=== PATIENT | male | born 1970 | race Caucasian/White ===

== ENCOUNTER 2019-06-30 14:20 | Outpatient (CLI) | payer MEDICAID ==
[2019-06-30 19:12] LABS: HGB - HEMOGLOBIN 14.1 g/dL (14.0-18.0); MEAN CORPUSCULAR HEMOGLOBIN 31.4 pg (27.0-31.0); MEAN CORPUSCULAR HGB CONC 32.9 g/dL (32.0-36.0); MEAN CORPUSCULAR VOLUME 95.5 fL (80.0-94.0); MEAN PLATELET VOLUME 9.4 fL (7.4-11.4); RED BLOOD COUNT 4.49 10^6/uL (4.70-6.10); RED CELL DISTRIBUTION WIDTH 11.9 % (12.0-15.0); WHITE BLOOD COUNT 7.2 x10^3/uL (4.8-10.8)
[2019-06-30 20:03] LABS: URIC ACID 5.3 mg/dL (2.6-7.2)
[2019-06-30 20:04] LABS: CRP - C-REACTIVE PROTEIN < 1.0 mg/dL (0-1.0)
[2019-06-30 20:19] LABS: RHEUMATOID FACTOR NEGATIVE (Negative)
[2019-07-03 09:51] LABS: ANA SCREEN NEGATIVE (NEGATIVE)
== END 2019-06-30 23:59 | disposition home or self-care (01) ==
LOC: LAB.N 14:20
PROVIDERS: ATTEND Family Medicine
DX: M19.90 Unspecified osteoarthritis, unspecified site (principal)
CPT/HCPCS: 36415; 84550; 85027; 85651; 86038; 86140; 86200; 86430

== ENCOUNTER 2019-10-28 12:33 | Outpatient (CLI) | payer MEDICAID ==
[2019-10-28 19:34] LABS: HB2 TOTAL 14.3 g/dL; HEMOGLOBIN A1C 1.11 g/dL; HEMOGLOBIN A1C % 9.3 % (4.6-6.2)
== END 2019-10-28 23:59 | disposition home or self-care (01) ==
LOC: LAB.N 12:33
PROVIDERS: ATTEND Family Medicine
DX: E11.9 Type 2 diabetes mellitus without complications (principal)
CPT/HCPCS: 36415; 83036

== ENCOUNTER 2020-03-22 12:52 | Outpatient (CLI) | payer MEDICAID ==
[2020-03-22 19:14] LABS: HB2 TOTAL 14.7 g/dL; HEMOGLOBIN A1C 1.01 g/dL; HEMOGLOBIN A1C % 8.4 % (4.6-6.2)
[2020-03-22 19:17] LABS: CALCIUM 9.5 mg/dL (8.5-10.3)
[2020-03-22 19:32] LABS: CREATININE,URINE 63.3 mg/dL; MICROALBUM/CREATININE RATIO,UR 66.4 ug/mg (<30.0); MICROALBUMIN,URINE 4.2 mg/dL (0-300.0)
== END 2020-03-22 23:59 | disposition home or self-care (01) ==
LOC: LAB.WCP 12:52
PROVIDERS: ATTEND Family Medicine
DX: E11.9 Type 2 diabetes mellitus without complications (principal)
CPT/HCPCS: 36415; 80048; 82043; 82570; 83036

== ENCOUNTER 2020-10-18 12:45 | Outpatient (CLI) | payer MEDICAID ==
[2020-10-18 18:07] LABS: CREATININE,URINE 206.6 mg/dL; MICROALBUM/CREATININE RATIO,UR 7.7 ug/mg (<30.0); MICROALBUMIN,URINE 1.6 mg/dL (0-300.0)
[2020-10-18 18:26] LABS: BUN - BLOOD UREA NITROGEN 15 mg/dL (6-20); CALCIUM 9.6 mg/dL (8.5-10.3); CARBON DIOXIDE - CO2 27 mmol/L (21-32); CHLORIDE 100 mmol/L (101-111); CHOL/HDL RATIO 4.8 (<5.0); CHOLESTEROL 190 mg/dL; CREATININE 0.8 mg/dL (0.6-1.2); GLUCOSE 141 mg/dL (70-100); HDL CHOLESTEROL 40 mg/dL; LDL CHOLESTEROL,CALCULATED 106 mg/dL; LDL/HDL RATIO 2.7 (<3.6); VLDL CHOLESTEROL 44 mg/dL
[2020-10-18 21:00] LABS: HEMOGLOBIN A1c% 7.7 % (4.27-6.07)
== END 2020-10-18 23:59 | disposition home or self-care (01) ==
LOC: LAB.WCP 12:45
PROVIDERS: ATTEND Family Medicine
DX: E11.9 Type 2 diabetes mellitus without complications (principal); R80.9 Proteinuria, unspecified; I10 Essential (primary) hypertension
CPT/HCPCS: 36415; 80048; 80061; 82043; 82570; 83036; 83721

== ENCOUNTER 2020-10-19 11:35 | Outpatient (CLI) | payer MEDICAID ==
--- NOTE | 2020-10-19 12:26 | XRAY Report ---
PROCEDURE: Cervical Spine Complete INDICATIONS: NECK AND BACK PAIN TECHNIQUE: 5 view(s) of the cervical spine were acquired. COMPARISON: None. FINDINGS: Bones: Normal cervical spine vertebral body height and alignment. Mild disc height loss at C4-C5 and C5-C6 with associated endplate degenerative change and uncovertebral spurring. No significant neural foraminal narrowing. No significant degenerative changes of the facets. No suspicious lytic or blasti c osseous lesion. No fracture. Soft tissues: No prevertebral soft tissue swelling. IMPRESSION: Mild degenerative changes at C4-C5 and C5-C6. Reviewed by: Mynor Presley MD on 10/19/2020 12:24 PM PST Approved by: Mynor Presley MD on 10/19/2020 12:24 PM PST Station ID: [id number]
--- NOTE | 2020-10-19 12:27 | XRAY Report ---
PROCEDURE: Cervical Spine w/Flex/Ext INDICATIONS: NECK AND BACK PAIN TECHNIQUE: 2 views of the cervical spine were acquired (lateral flexion and extension views). COMPARISON: None. FINDINGS: Bones: No listhesis or significant change in alignment upon comparison of the flexion and extension v iews. Range of motion appears slightly limited upon flexion. soft tissues: Prevertebral soft tissues are normal in thickness. IMPRESSION: Slightly limited range of motion upon flexion. No findings of dynamic instability. Reviewed by: Mynor Presley MD on 10/19/2020 12:25 PM PST Approved by: Mynor Presley MD on 10/19/2020 12:25 PM PST Station ID: [id number]
== END 2020-10-19 11:36 | disposition home or self-care (01) ==
LOC: DI.N 11:35
PROVIDERS: ATTEND Family Medicine
DX: M50.321 Other cervical disc degeneration at C4-C5 level (principal)

== ENCOUNTER 2020-10-21 11:36 | Emergency (ER) | payer MEDICAID ==
--- NOTE | 2020-10-21 12:25 | ED Physician Documentation ---
History of Present Illness - Stated complaint Stated Complaint: HIGH BLOOD PRESSURE - Chief complaint Chief Complaint: General - History obtained from History obtained from: Patient - History of Present Illness Timing: How many weeks ago (1) - Additonal information Additional information: 50 y/o male with a history of CAD, HTN and DM2 is under stress after the passing of his 3 months ago. He has noted a headache and increased blood pressure and he has gone in to his doctors office for evaluation. He is taking his medications, he denies alcohol use or withdrawal, he has diabetes and he indicates he has only getting up 2 times per night, he is not sleeping well for several months. Review of Systems Constitutional: denies: Fever, Chills, Myalgias Eyes: denies: Decreased vision Ears: denies: Ear pain, Drainage/discharge Nose: denies: Rhinorrhea / runny nose, Congestion Throat: reports: Dental pain / toothache. denies: Sore throat Cardiac: denies: Chest pain / pressure, Palpitations Respiratory: denies: Dyspnea, Cough GI: denies: Abdominal Pain, Nausea, Vomiting, Constipation, Diarrhea : denies: Dysuria, Frequency Skin: denies: Rash, Lesions Musculoskeletal: reports: Neck pain. denies: Back pain, Extremity pain Neurologic: reports: Headache. denies: Generalized weakness, Focal weakness, Numbness, Difficulty speaking, Head injury, LOC Psychiatric: reports: Insomnia PD PAST MEDICAL HISTORY - Past Medical History Past Medical History: Yes Cardiovascular: Hypertension, High cholesterol, Coronary artery disease Respiratory: None Neuro: None Endocrine/Autoimmune: Type 2 diabetes GI: GERD : None HEENT: None Psych: Anxiety Musculoskeletal: None Derm: None - Past Surgical History Past Surgical History: No - Present Medications Home Medications: Ambulatory Orders Medication Instructions Recorded Confirmed Aspirin [Aspirin EC] 1 tab PO DAILY 10/21/20 10/21/20 Atorvastatin Calcium 1 tab PO DAILY 10/21/20 10/21/20 Carvedilol [Coreg] 1 tab PO BID 10/21/20 10/21/20 Cyclobenzaprine HCl 1 tab PO TID PRN 10/21/20 10/21/[address] [Voltaren] 1 tab PO BID 10/21/20 10/21/20 Insulin Glargine [Lantus Solostar] 40 units SQ HS 10/21/20 10/21/20 Lisinopril [Zestril] 1 tab PO DAILY 10/21/20 10/21/20 Ticagrelor [Brilinta] 90 mg PO BID 10/21/20 10/21/20 glipiZIDE [Glipizide] 1 tab PO BID 10/21/20 10/21/20 metFORMIN [Glucophage] 2 tab PO BID 10/21/20 10/21/20 - Allergies Allergies/Adverse Reactions: Allergies Allergy/AdvReac Type Severity Reaction Status Date / Time Penicillins Allergy Rash Verified 10/21/20 11:46 - Social History Does the pt smoke?: Yes Smoking Status: Current every day smoker Does the pt drink ETOH?: No Does the pt have substance abuse?: No - Immunizations Immunizations are current?: Yes - POLST Patient has POLST: No PD ED PE NORMAL - Vitals Vital signs reviewed: Yes (hypertensive marked) - General General: Alert and oriented X 3, No acute distress, Well developed/nourished - HEENT HEENT: Atraumatic, PERRL, EOMI, Other (multiple teeth are carious and broken off at the gum) - Neck Neck: Supple, no meningeal sign, No bony TTP - Cardiac Cardiac: RRR, No murmur - Respiratory Respiratory: No respiratory distress, Clear bilaterally - Abdomen Abdomen: Soft, Non tender - Back Back: No CVA TTP, No spinal TTP - Derm Derm: Normal color, Warm and dry, No rash - Extremities Extremities: No deformity, No edema - Neuro Neuro: Alert and oriented X 3, text transcriber 2-12 intact, No motor deficit, No sensory deficit, Normal speech Eye Opening: Spontaneous Motor: Obeys Commands Verbal: Oriented GCS Score: 15 - Psych Psych: Normal mood, Normal affect Results - Vitals Vitals: Vital Signs - 24 hr 10/21/20 10/21/20 11:40 13:05 Temperature 36.3 C L Heart Rate 87 84 Respiratory 18 18 Rate Blood Pressure 192/114 H 164/91 H O2 Saturation 99 100 Oxygen O2 Source Room air - Labs Labs: Laboratory Tests 10/21/20 10/21/20 10/21/20 12:22 12:22 12:22 WBC 7.8 RBC 4.67 L Hgb 14.7 Hct 44.0 MCV 94.2 H MCH 31.5 H MCHC 33.4 RDW 12.0 Plt Count 305 MPV 8.4 Neut # (Auto) 4.9 Lymph # (Auto) 1.8 Kaufman # (Auto) 0.6 Eos # (Auto) 0.3 Baso # (Auto) 0.1 Absolute Nucleated RBC 0.00 Nucleated RBC % 0.0 Sodium 140 Potassium 4.7 Chloride 99 L Carbon Dioxide 26 Anion Gap 15.0 H BUN 17 Creatinine 0.8 Estimated GFR (MDRD) 103 Glucose 183 H Calcium 9.3 Total Bilirubin 0.7 AST 13 ALT 24 Alkaline Phosphatase 60 Troponin I High Sens Total Protein 7.2 Albumin 4.3 Globulin 2.9 Albumin/Globulin Ratio 1.5 Lipase 30 TSH 0.93 10/21/20 12:22 WBC RBC Hgb Hct MCV MCH MCHC RDW Plt Count MPV Neut # (Auto) Lymph # (Auto) Kaufman # (Auto) Eos # (Auto) Baso # (Auto) Absolute Nucleated RBC Nucleated RBC % Sodium Potassium Chloride Carbon Dioxide Anion Gap BUN Creatinine Estimated GFR (MDRD) Glucose Calcium Total Bilirubin AST ALT Alkaline Phosphatase Troponin I High Sens 4.8 Total Protein Albumin Globulin Albumin/Globulin Ratio Lipase TSH Procedures - IVC sono (time) 1150 Bedside IVC sono: IVC measures (cm) (1.15), IVC collapsed c insp (cm) (complete), Dehydration (est 1+ liter deficit) PD MEDICAL DECISION MAKING - ED course Complexity details: reviewed old records, reviewed results, re-evaluated patient, considered differential, d/w patient ED course: 50 y/o male diabetic with htn and CAD is hypertensive and dehydrated. He was able to drink a liter of fluid and his pressure came down to a reasonable range. He has some dental problems and has some pain associated with this and this may be contributing as well. He is taking lisinopril 40mg daily and carvedilol 25mg bid. These are both reasonably strong doses and I considered adding a third agent until we rechecked the pressure. I have asked the patient to follow up with the dentist and stay hydrated. Departure - Departure Disposition: 01 Home, Self Care Clinical Impression: Dehydration determined by examination Hypertension Qualifiers: Hypertension type: essential hypertension Qualified Code(s): I10 - Essential (primary) hypertension Condition: Stable Instructions: ED Dehydration, ED Hypertension Conf Out Of Control Follow-Up: Fili Piña MD [Primary Care Provider] - Comments: Today your blood pressure was markedly elevated and this has improved during your visit. We found you were dehydrated on arrival and after the liter of fluid you consumed your blood pressure is better. Dehydration can happen from diabetes whenever your sugar goes above 210. Control your diabetes as closely as you can. Painful conditions acute or chronic can increase your blood pressure as well. We recommend you get in to see a dentist about your teeth as this is also likely contributing. Take your medications, stay hydrated, follow up with the dentist and follow up with your primary care doctor.
[2020-10-21 12:33] LABS: BASOPHILS # (AUTO) 0.1 10^3/uL (0.0-0.1); BASOPHILS % (AUTO) 0.9 %; EOSINOPHILS # (AUTO) 0.3 10^3/uL (0.0-0.7); EOSINOPHILS % (AUTO) 3.9 %; HGB - HEMOGLOBIN 14.7 g/dL (14.0-18.0); LYMPHOCYTES # (AUTO) 1.8 10^3/uL (1.5-3.5); LYMPHOCYTES % (AUTO) 23.1 %; MEAN CORPUSCULAR HEMOGLOBIN 31.5 pg (27.0-31.0); MEAN CORPUSCULAR HGB CONC 33.4 g/dL (32.0-36.0); MEAN CORPUSCULAR VOLUME 94.2 fL (80.0-94.0); MEAN PLATELET VOLUME 8.4 fL (7.4-11.4); MONOCYTES # (AUTO) 0.6 10^3/uL (0.0-1.0); MONOCYTES % (AUTO) 8.1 %; NEUTROPHILS # (AUTO) 4.9 10^3/uL (1.5-6.6); NEUTROPHILS % (AUTO) 63.6 %; PLT - PLATELET COUNT 305 10^3/uL (130-450); RED BLOOD COUNT 4.67 10^6/uL (4.70-6.10); WHITE BLOOD COUNT 7.8 x10^3/uL (4.8-10.8)
[2020-10-21 12:51] LABS: ALBUMIN 4.3 g/dL (3.2-5.5); ALBUMIN/GLOBULIN RATIO 1.5 (1.0-2.2); BILIRUBIN,TOTAL 0.7 mg/dL (0.2-1.0); CALCIUM 9.3 mg/dL (8.5-10.3); CREATININE 0.8 mg/dL (0.6-1.2); TOTAL PROTEIN 7.2 g/dL (6.7-8.2)
[2020-10-21 13:06] VITALS: BP 164/91
== END 2020-10-21 13:23 | disposition home or self-care (01) ==
LOC: ED 11:36
DX: E86.0 Dehydration (principal); I10 Essential (primary) hypertension; K02.9 Dental caries, unspecified; K08.89 Other specified disorders of teeth and supporting structures; E11.9 Type 2 diabetes mellitus without complications; Z79.4 Long term (current) use of insulin; I25.10 Atherosclerotic heart disease of native coronary artery without angina pectoris; Z79.82 Long term (current) use of aspirin; F17.200 Nicotine dependence, unspecified, uncomplicated; Z20.822 Contact with and (suspected) exposure to COVID-19
CPT/HCPCS: 36415; 80053; 83690; 84443; 84484; 85025; 99283; 99284

== ENCOUNTER 2021-01-11 12:20 | Outpatient (CLI) | payer MEDICAID ==
[2021-01-11 18:52] LABS: BASOPHILS # (AUTO) 0.1 10^3/uL (0.0-0.1); BASOPHILS % (AUTO) 0.9 %; EOSINOPHILS # (AUTO) 0.5 10^3/uL (0.0-0.7); EOSINOPHILS % (AUTO) 6.4 %; HGB - HEMOGLOBIN 12.5 g/dL (14.0-18.0); LYMPHOCYTES # (AUTO) 2.3 10^3/uL (1.5-3.5); LYMPHOCYTES % (AUTO) 31.1 %; MEAN CORPUSCULAR HEMOGLOBIN 31.7 pg (27.0-31.0); MEAN CORPUSCULAR HGB CONC 32.9 g/dL (32.0-36.0); MEAN CORPUSCULAR VOLUME 96.4 fL (80.0-94.0); MEAN PLATELET VOLUME 9.2 fL (7.4-11.4); MONOCYTES # (AUTO) 0.6 10^3/uL (0.0-1.0); NEUTROPHILS % (AUTO) 53.2 %; PLT - PLATELET COUNT 322 10^3/uL (130-450); RED BLOOD COUNT 3.94 10^6/uL (4.70-6.10); RED CELL DISTRIBUTION WIDTH 11.9 % (12.0-15.0); WHITE BLOOD COUNT 7.5 x10^3/uL (4.8-10.8)
[2021-01-11 19:02] LABS: ESTIMATED AVERAGE GLUCOSE 186 mg/dL (70-100); HEMOGLOBIN A1c% 8.1 % (4.27-6.07)
[2021-01-11 21:16] LABS: CALCIUM 8.9 mg/dL (8.5-10.3); CREATININE 0.9 mg/dL (0.6-1.2); POTASSIUM 4.8 mmol/L (3.5-5.0)
== END 2021-01-11 23:59 | disposition home or self-care (01) ==
LOC: LAB.WCP 12:20
PROVIDERS: ATTEND Family Medicine
DX: E11.9 Type 2 diabetes mellitus without complications (principal); I10 Essential (primary) hypertension
CPT/HCPCS: 36415; 80048; 83036; 85025

== ENCOUNTER 2021-03-31 07:47 | Emergency (ER) | payer MEDICAID ==
[2021-03-31] MEDS ORDERED: CHERRY SYRUP 10 ML UDC PO ONE (09:22)
[2021-03-31] MEDS ORDERED: DEXAMETHASONE 10 MG/ML VIAL PO STA (09:22)
--- NOTE | 2021-03-31 09:25 | ED Physician Documentation ---
History of Present Illness - Stated complaint Stated Complaint: COUGH - Chief complaint Chief Complaint: Resp - History obtained from History obtained from: Patient - Additonal information Additional information: 50-year-old man with history of diabetes, high blood pressure, AL with stents, presents with productive cough since Friday associated with nasal congestion. Patient also states that he is wheezing in the evening times and has a history of childhood asthma. Does not have an albuterol inhaler at home. Denies fever, ear pain, chest pain, shortness of breath, rash, sick contacts or travel. Review of Systems Constitutional: reports: Fatigue. denies: Fever, Chills Nose: reports: Rhinorrhea / runny nose, Congestion Cardiac: denies: Chest pain / pressure Respiratory: reports: Cough. denies: Hemoptysis GI: denies: Abdominal Pain, Nausea, Vomiting PD PAST MEDICAL HISTORY - Past Medical History Past Medical History: Yes Cardiovascular: Hypertension, High cholesterol, Coronary artery disease Respiratory: None Neuro: None Endocrine/Autoimmune: Type 2 diabetes GI: GERD : None HEENT: None Psych: Anxiety Musculoskeletal: None Derm: None - Past Surgical History Past Surgical History: No - Present Medications Home Medications: Ambulatory Orders Medication Instructions Recorded Confirmed Aspirin [Aspirin EC] 1 tab PO DAILY 10/21/20 03/31/21 Atorvastatin Calcium 1 tab PO DAILY 10/21/20 03/31/21 Carvedilol [Coreg] 1 tab PO BID 10/21/20 03/31/21 Cyclobenzaprine HCl 1 tab PO TID PRN 10/21/20 03/31/[address] [Voltaren] 1 tab PO BID 10/21/20 03/31/21 Insulin Glargine [Lantus Solostar] 40 units SQ HS 10/21/20 03/31/21 Lisinopril [Zestril] 1 tab PO DAILY 10/21/20 03/31/21 Ticagrelor [Brilinta] 90 mg PO BID 10/21/20 03/31/21 glipiZIDE [Glipizide] 1 tab PO BID 10/21/20 03/31/21 metFORMIN [Glucophage] 2 tab PO BID 10/21/20 03/31/21 hydroCHLOROthiazide [Hydrodiuril] 12.5 mg PO DAILY 03/31/21 03/31/21 - Allergies Allergies/Adverse Reactions: Allergies Allergy/AdvReac Type Severity Reaction Status Date / Time Penicillins Allergy Rash Verified 03/31/21 08:05 strawberry Allergy Hives Verified 03/31/21 08:05 - Social History Does the pt smoke?: Yes Smoking Status: Current every day smoker Does the pt drink ETOH?: No Does the pt have substance abuse?: No - Immunizations Immunizations are current?: Yes - POLST Patient has POLST: No PD ED PE NORMAL - Vitals Vital signs reviewed: Yes - General General: Alert and oriented X 3, No acute distress, Well developed/nourished - HEENT HEENT: Atraumatic, PERRL, EOMI, Moist mucous membranes, Pharynx benign, Other (Bilateral nasal congestion) - Neck Neck: Supple, no meningeal sign - Cardiac Cardiac: RRR - Respiratory Respiratory: No respiratory distress, Clear bilaterally - Abdomen Abdomen: Non tender, Non distended - Derm Derm: Normal color, Warm and dry - Extremities Extremities: No deformity - Neuro Neuro: Alert and oriented X 3 - Psych Psych: Normal mood, Normal affect Results - Vitals Vitals: Vital Signs - 24 hr 03/31/21 08:02 Temperature 36.4 C L Heart Rate 78 Respiratory 20 Rate Blood Pressure 150/94 H O2 Saturation 100 Oxygen O2 Source Room air PD MEDICAL DECISION MAKING - ED course ED course: 50-year-old man presents with viral upper respiratory infection. Education given and return precautions given. He will follow up with his primary doctor. Departure - Departure Disposition: 01 Home, Self Care Clinical Impression: URI (upper respiratory infection) Condition: Good Instructions: ED Viral Syndrome Comments: You were seen in the emergency department for a cold. Return to the emergency department you have any new or worsening symptoms or other concerns. Follow-up your primary doctor Forms: Activity restrictions
[2021-03-31 09:35] VITALS: BP 130/83
== END 2021-03-31 09:41 | disposition home or self-care (01) ==
LOC: ED 07:47
DX: J06.9 Acute upper respiratory infection, unspecified (principal); E11.9 Type 2 diabetes mellitus without complications; Z79.4 Long term (current) use of insulin; I10 Essential (primary) hypertension; F17.200 Nicotine dependence, unspecified, uncomplicated
CPT/HCPCS: 99282; 99284; A9270

== ENCOUNTER 2021-05-17 10:53 | Outpatient (CLI) | payer MEDICAID ==
[2021-05-17 18:07] LABS: BASOPHILS # (AUTO) 0.1 10^3/uL (0.0-0.1); BASOPHILS % (AUTO) 1.1 %; EOSINOPHILS # (AUTO) 0.3 10^3/uL (0.0-0.7); HCT - HEMATOCRIT 39.1 % (42.0-52.0); HGB - HEMOGLOBIN 12.5 g/dL (14.0-18.0); LYMPHOCYTES # (AUTO) 1.9 10^3/uL (1.5-3.5); LYMPHOCYTES % (AUTO) 34.8 %; MEAN CORPUSCULAR HEMOGLOBIN 31.4 pg (27.0-31.0); MEAN CORPUSCULAR VOLUME 98.2 fL (80.0-94.0); MEAN PLATELET VOLUME 9.3 fL (7.4-11.4); MONOCYTES # (AUTO) 0.5 10^3/uL (0.0-1.0); MONOCYTES % (AUTO) 9.7 %; NEUTROPHILS # (AUTO) 2.7 10^3/uL (1.5-6.6); PLT - PLATELET COUNT 302 10^3/uL (130-450); RED BLOOD COUNT 3.98 10^6/uL (4.70-6.10); RED CELL DISTRIBUTION WIDTH 12.2 % (12.0-15.0); WHITE BLOOD COUNT 5.6 x10^3/uL (4.8-10.8)
[2021-05-17 18:18] LABS: CALCIUM 9.1 mg/dL (8.5-10.3); CREATININE 1.1 mg/dL (0.6-1.2); POTASSIUM 4.3 mmol/L (3.5-5.0)
[2021-05-17 18:26] LABS: CREATININE,URINE 89.9 mg/dL; MICROALBUM/CREATININE RATIO,UR 3.3 ug/mg (<30.0); MICROALBUMIN,URINE 0.3 mg/dL (0-300.0)
[2021-05-17 19:59] LABS: ESTIMATED AVERAGE GLUCOSE 209 mg/dL (70-100); HEMOGLOBIN A1c% 8.9 % (4.27-6.07)
== END 2021-05-17 10:54 | disposition home or self-care (01) ==
LOC: LAB.N 10:53
PROVIDERS: ATTEND Family Medicine
DX: E11.319 Type 2 diabetes mellitus with unspecified diabetic retinopathy without macular edema (principal); E66.9 Obesity, unspecified; L40.8 Other psoriasis; I10 Essential (primary) hypertension
CPT/HCPCS: 36415; 80048; 82043; 82570; 83036; 85025

== ENCOUNTER 2021-09-26 13:42 | Outpatient (CLI) | payer MEDICAID ==
[2021-09-26 14:39] VITALS: BP 127/80
--- NOTE | 2021-09-26 14:39 | SLEEP CARE CONSULTATION ---
Information from patient questionnaire entered by Yemi Babcock MA. I have reviewed and concur with the information entered by Yemi Babcock MA. This document represents the service I personally performed and the decisions made by me, Niya Bridges ARNP. History of Present Illness Service Date and Time: 09/26/2021 1342 Reason for Visit: New patient Chief Complaint: reports: Unrefreshed sleep (sometimes), Snoring, Excessive daytime sleepiness (worse over last year), Frequent awakenings at night Date of Onset: 1 YEAR Usual bedtime: 11:00 PM Time it takes to fall asleep: 45 PLUS MINUTES Snores at night: Yes Observed to quit breathing while asleep: No Sleeps alone due to snoring: No Number of times waking at night: 1 - 2 Reasons for waking at night: reports: Snoring, Bathroom. denies: Choking, Gasping for air Toss, Turn, or Twitch while sleeping: Yes Recalls having dreams: Yes Usually gets out of bed at: 10:30, sometimes earlier Feels refreshed in the morning: No Morning headache: No Sleepy or fatigued during the day: No Ever fallen asleep while driving: Yes (no drowsy driving or accidents) Takes day naps: No Dreams during day naps: No Prior sleep studies: No Additional HPI information: I had the pleasure of seeing KAT SIM today regarding the possibility of him having a sleep disorder. His current complaints are excessive daytime sleepiness and frequent night awakenings. He states he has been told that he snores very loud by his late and other family members. He feels that his daytime sleepiness has gotten worse over the last year. He feels he is waking up frequently at night but states he does have diabetes and is up using the restroom. He is not rested in the mornings except for a few days where he gets less than 6 hours sleep. He will go to sleep around 11 PM and sometimes not get up until 10:30 in the morning. He states he does not have to go to work until noon around 8 AM he will try to get back to sleep. He states in 2016 he had a he art attack and they had to place 3 heart stents in his heart. He is also diabetic with neuropathy. He is a current smoker. 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 Patient is and lives in [place]. Have you smoked in the past 12 months: Yes Cigarettes per day (20/pack): 20 Alcohol use: No Caffeine use: Yes Caffeine amount and frequency: 1 X DAILY Family History Family history of sleep disordered breathing: No Allergies and Home Medications Known drug allergies: Yes ([facility]) Drug allergies reviewed: Yes Home medication list reviewed: Yes Allergy and home medication list: Acetaminophen 500 mg Aspirin 81 mg Atorvastatin 40 mg Brilinta 90 mg Carvedilol 25 mg Vitamin D3 Cyclobenzaprine 10 mg Diclofenac EC 75 mg Gabapentin 400 mg Glipizide 10 mg, twice daily HCTZ 12.5 mg Jardiance 10 mg Lantus 42 units nightly Lisinopril 40 mg Metformin 1000 mg twice a day Review of Systems Cardiovascular: reports: high blood pressure Gastrointestinal: denies: heartburn Psychiatric: denies: anxiety, depression Ear/Nose/Throat: reports: wisdom teeth removed. denies: tonsillectomy Endocrine: reports: increased urination. denies: thyroid disease Musculoskeletal: reports: back pain, muscle pain or cramping Physical Exam Vital signs obtained and entered by: Barbara BABCOCK CMA [facility] Blood Pressure: 127/80 (LEFT WRIST) Heart Rate: 97 O2 Saturation: 97 (WITH PAPER MASK) Height: 6 ft 2 in Weight: 275 lb (WITH CLOTHES) Body Mass Index: 35.3 BMI Classification: Obese Neck circumference: 19 (inches) Soft palate: long Hard palate: normal Uvula: normal Uvula visualization: 50% Mallampati Class II Tongue: enlarged in size with teeth stacy on lateral edges Tonsils: 1+ Neck: normal w/o lymphadenopathy or thyromegaly Heart: regular rate and rhythm Lungs: clear bilaterally Impression and Plan 1. Suspected Obstructive Sleep Apnea-Hypopnea Syndrome, as suggested by a history of loud and irregular snoring, frequent awakening during the night, unrefreshed sleep and excessive daytime sleepiness. Narrow oropharynx and obesit y are common predisposing factors for obstructive sleep apnea-hypopnea syndrome. I recommend proceeding to polysomnography to confirm the diagnosis and to assess severity. If the patient has significant sleep disordered breathing, a manual CPAP titration study will also be performed to find the optimal treatment pressure. I informed the patient of what the sleep studies involve and after some discussion, obtained agreement to proceed. The pathophysiology of obstructive sleep apnea-hypopnea syndrome was discussed with the patient and health risks of cardiovascular and cerebrovascular disease if not treated. AAS brochure for obstructive sleep apnea-hypopnea syndrome given and reviewed. Risks of drowsy driving discussed in detail and patient advised to avoid long distance driving and to warehouse puller at the first sign of drowsiness. Patient agreed to plan. * Schedule polysomnography +- manual CPAP titration study and return in 1-2 weeks after the study to discuss result and initiate therapy. * Avoid long distance driving or driving when feeling sleepy. * Avoid alcohol, sedative and muscle relaxant around bedtime. * Attempt to lose weight. * Review instructions provided by trained office staff on how to prepare for the sleep study. * Return for follow-up after sleep study completed. Counseling Topics: Weight loss health impact Visit Type: In Office Time Spent with Patient (minutes): 32 Provider Statement: I spent 100% of the Face to Face Visit with the patient with greater than 50% spent counseling the patient and coordination of care.
== END 2021-09-26 13:43 | disposition home or self-care (01) ==
LOC: SC 13:42
PROVIDERS: ATTEND Nurse Practitioner Family
DX: G47.10 Hypersomnia, unspecified (principal); R06.83 Snoring; G47.8 Other sleep disorders; E66.9 Obesity, unspecified; Z68.35 Body mass index [BMI] 35.0-35.9, adult
CPT/HCPCS: 99203; 99212

== ENCOUNTER 2021-10-03 14:37 | Outpatient (CLI) | payer MEDICAID | END 2021-10-03 14:38 | disposition home or self-care (01) | LOC: SC 14:37 | PROVIDERS: ATTEND Nurse Practitioner Family | DX: G47.33 Obstructive sleep apnea (adult) (pediatric) (principal); R09.02 Hypoxemia | CPT/HCPCS: 95806 ==

== ENCOUNTER 2021-10-04 08:54 | Outpatient (CLI) | payer MEDICAID ==
[2021-10-04 12:14] LABS: BASOPHILS # (AUTO) 0.1 10^3/uL (0.0-0.1); BASOPHILS % (AUTO) 0.8 %; EOSINOPHILS # (AUTO) 0.3 10^3/uL (0.0-0.7); HGB - HEMOGLOBIN 14.5 g/dL (14.0-18.0); LYMPHOCYTES % (AUTO) 32.8 %; MEAN CORPUSCULAR HEMOGLOBIN 31.7 pg (27.0-31.0); MEAN CORPUSCULAR VOLUME 96.3 fL (80.0-94.0); MEAN PLATELET VOLUME 9.2 fL (7.4-11.4); MONOCYTES # (AUTO) 0.6 10^3/uL (0.0-1.0); MONOCYTES % (AUTO) 10.3 %; NEUTROPHILS # (AUTO) 3.2 10^3/uL (1.5-6.6); NEUTROPHILS % (AUTO) 50.9 %; PLT - PLATELET COUNT 291 10^3/uL (130-450); RED BLOOD COUNT 4.57 10^6/uL (4.70-6.10); RED CELL DISTRIBUTION WIDTH 12.2 % (12.0-15.0); WHITE BLOOD COUNT 6.2 x10^3/uL (4.8-10.8)
[2021-10-04 12:20] LABS: ALBUMIN 4.2 g/dL (3.2-5.5); ALBUMIN/GLOBULIN RATIO 1.3 (1.0-2.2); ALKALINE PHOSPHATASE 67 IU/L (42-121); ALT ALANINE AMINOTRANSFERASE 20 IU/L (10-60); AST ASPARTATE AMINOTRANSFERASE 14 IU/L (10-42); BILIRUBIN,TOTAL 0.6 mg/dL (0.2-1.0); BUN - BLOOD UREA NITROGEN 27 mg/dL (6-20); CARBON DIOXIDE - CO2 27 mmol/L (21-32); CHLORIDE 101 mmol/L (101-111); CHOLESTEROL 168 mg/dL; CREATININE 1.1 mg/dL (0.6-1.2); GFR - MDRD 71 (>89); GLUCOSE 176 mg/dL (70-100); HDL CHOLESTEROL 28 mg/dL; LDL CHOLESTEROL,CALCULATED 78 mg/dL; LDL/HDL RATIO 2.8 (<3.6); SODIUM 139 mmol/L (135-145); TOTAL PROTEIN 7.5 g/dL (6.7-8.2); TRIGLYCERIDES 311 mg/dL; VLDL CHOLESTEROL 62 mg/dL
[2021-10-04 12:30] LABS: THYROID STIMULATING HORMONE 1.62 uIU/mL (0.34-5.60)
[2021-10-04 12:47] LABS: MICROALBUM/CREATININE RATIO,UR 6.7 ug/mg (<30.0)
[2021-10-04 19:05] LABS: ESTIMATED AVERAGE GLUCOSE 174 mg/dL (70-100); HEMOGLOBIN A1c% 7.7 % (4.27-6.07)
== END 2021-10-04 08:55 | disposition home or self-care (01) ==
LOC: LAB.N 08:54
PROVIDERS: ATTEND Family Medicine
DX: I10 Essential (primary) hypertension (principal); Z12.5 Encounter for screening for malignant neoplasm of prostate; E78.5 Hyperlipidemia, unspecified; E11.9 Type 2 diabetes mellitus without complications
CPT/HCPCS: 36415; 80053; 80061; 82043; 82570; 83036; 83721; 84153; 84443; 85025

== ENCOUNTER 2021-10-24 14:12 | Outpatient (CLI) | payer MEDICAID ==
--- NOTE | 2021-10-24 15:01 | SLEEP CARE CONSULTATION ---
Information from patient questionnaire entered by Yemi Benavides MA. I have reviewed and concur with the information entered by Yemi Benavides MA. This document represents the service I personally performed and the decisions made by , Niya Bridges ARNP. History of Present Illness Service Date and Time: 10/24/2021 1412 Initial [place] Sleepiness Scale score: 2 (2021) Current [place] Sleepiness Scale score: 8 (2021) Additional HPI information: KAT SIM returns for follow up and results of the recently performed home sleep study. I explained the pathophysiology behind obstructive sleep apnea. We then spent quite a bit of time discussing different treatment options. For mild obstructive sleep apnea, surgery and oral appliance are alternatives to nasal CPAP therapy but in moderate or severe cases, nasal CPAP is the most effective and reliable treatment. Because apnea is primarily in supine position, then positional management therapy could be effective. Methods discussed such as positioning with pillows to prevent supine sleep. I reviewed the impact of weight changes on sleep apnea and strongly recommended losing weight. After some discussion, the patient opted to go with the nasal CPAP therapy. Nasal autoCPAP set at 4-15 cmH20 will be ordered with rationale explained. A manual titration study will be ordered if unable to find optimal pressure with office adjustments. I explained how CPAP machine works and what to expect when using the machine. Using CPAP every night in order to get used to it was emphasized. Patient advised to put CPAP mask on before getting into bed so as not to fall asleep wi thout CPAP. To assist acclimation to CPAP use, it could also be used for a short time during day while reading or watching TV. The patient was instructed to call the CPAP supplier to discuss any mechanical problem that may occur. If the mask given is uncomfortable or is difficult to keep on through the night even with adjustment, contact the CPAP supplier as many will replace with another mask style if notified before 30 days. If snoring or perceives is not getting enough air or too much air from the machine, notify this office. AASM patient education PAP tips reviewed and given to patient. Patient does not drink alcohol. Patient was cautioned about risks of drowsy driving until sleepiness symptoms resolve. Sleep Study - Results Type of Sleep Study: Home sleep study Prior sleep studies: No Polysomnography/Home Sleep Study results: Physician Impression: The quality of the study is good. The length of the study is adequate (> 240 minutes). Please also see the tabulated and graphic data. 1. Obstructive Sleep Apnea-Hypopnea (ICD-10 G47.33), moderate, with an AHI of 16.8/hr and jillian SaO2 of 79%. During the study, the patient had 77 apneas (77 obstructive, 0 central, 0 mixed) and 75 hypopneas. The longest episode lasted 136.0 seconds. The respiratory events occ urred more frequently during supine sleep (supine AHI was 22.4 and non-supine, 6.58). 2. Hypoxemia (ICD-10 R09.02), moderate, with the lowest oxygen saturation of 79 % and 18.2 minutes with SaO2 under 90%. Baseline oxygen saturation was normal (Average oxygen saturation was 93%). Allergies and Home Medications Known drug allergies: Yes ([facility], [facility]) Drug allergies reviewed: Yes Home medication list reviewed: Yes (stopped Brilinta and diclofenac) Allergy and home medication list: Allergies Penicillins Allergy (Verified 03/31/21 08:05) Rash strawberry Allergy (Verified 03/31/21 08:05) Hives Review of Systems Review of systems same as previous: Yes (no changes) Physical Exam Vital signs obtained and entered by: HANNAH MONTGOMERY Blood Pressure: 130/90 (LEFT, PULSE 73, RESP 16,) Heart Rate: 70 O2 Saturation: 97 (WITH PAPER MASK) Height: 6 ft 2 in Weight: 280 lb (WITH CLOTHES) Body Mass Index: 35.9 BMI Classification: Obese Impression and Plan 1. Obstructive Sleep Apnea-Hypopnea Syndrome, 16.8, with lowest oxygen saturation of 79%. Obviously this is the cause of the patients symptoms of unrefreshed sleep, and excessive daytime sleepiness. Positive pressure therapy could benefit hypertension, diabetes and cardiac disease (CHD, [place], stents. As mentioned above, the patient will be started on nasal autoCPAP therapy with pressure set at 4-15 cmH2O. A manual titration study will be completed if unable to find optimal treatment pressure with office adjustments. Compliance guidelines also reviewed. A copy of compliance guidelines will be given for reference at check out. Because the apnea is more severe supine, I instructed to avoid sleeping supine using pillow positioning until able to start CPAP use. 2. Hypoxemia, moderate, with the lowest oxygen saturation of 79 % and 18.2 minutes with SaO2 under 90%. His baseline oxygen saturation was normal with an average oxygen saturation of 93%. * Nasal auto CPAP therapy, pressure at 4-15 cm H2O. * Attempt to lose weight. * Avoid alcohol consumption near bedtime. * Avoid supine sleep until using CPAP. * The patient is again cautioned about driving until sleepiness completely resolves. * Return one month after CPAP obtained. I will assess response to therapy and compliance at that time. a Counseling Topics: Sleeping position, Weight loss health impact Visit Type: In Office Time Spent with Patient (minutes): 20 Provider Statement: I spent 100% of the Face to Face Visit with the patient with greater than 50% spent counseling the patient and coordination of care.
[2021-10-24 15:02] VITALS: BP 130/90
== END 2021-10-24 14:13 | disposition home or self-care (01) ==
LOC: SC 14:12
PROVIDERS: ATTEND Nurse Practitioner Family
DX: G47.33 Obstructive sleep apnea (adult) (pediatric) (principal); R09.02 Hypoxemia; E66.9 Obesity, unspecified; Z68.35 Body mass index [BMI] 35.0-35.9, adult
CPT/HCPCS: 99212; 99213

== ENCOUNTER 2022-01-03 09:48 | Outpatient (CLI) | payer MEDICAID ==
[2022-01-03 12:39] LABS: CALCIUM 9.2 mg/dL (8.5-10.3); CREATININE 0.9 mg/dL (0.6-1.2); POTASSIUM 4.6 mmol/L (3.5-5.0)
== END 2022-01-03 09:49 | disposition home or self-care (01) ==
LOC: LAB.N 09:48
PROVIDERS: ATTEND Family Medicine
DX: E11.65 Type 2 diabetes mellitus with hyperglycemia (principal)
CPT/HCPCS: 36415; 80048; 81599; 83036

== ENCOUNTER 2022-01-23 12:49 | Outpatient (CLI) | payer MEDICAID ==
[2022-01-23 13:31] VITALS: BP 114/87
--- NOTE | 2022-01-23 13:31 | SLEEP CARE CONSULTATION ---
Information from patient questionnaire entered by Yemi Benavides MA. I have reviewed and concur with the information entered by Yemi Benavides MA. This document represents the service I personally performed and the decisions made by , Niya Bridges ARNP. History of Present Illness Service Date and Time: 01/23/2022 1249 Previous diagnosis: Moderate, Obstructive Sleep Apnea-Hypopnea Syndrome AHI: 16.8 (in 2021) Reason for follow up: first compliance (12/19/21 SET UP, JENNI NEED CODE) Equipment type: CPAP Equipment obtained from: [employer] (got initial supplies) Mask style: Nasal Mask brand: Respironics ([employer]) Backup mask available: Yes (other mask, bought off [employer]) Prior sleep studies: No Type of Sleep Study: Home sleep study HPI additional information: KAT SIM was diagnosed to have moderate, AHI 16.8, obstructive sleep apnea- hypopnea syndrome and returned today for CPAP therapy first compliance (Jenni II) follow-up. Sleep Study - Results Type of Sleep Study: Home sleep study Prior sleep studies: No CPAP Compliance Data - Data Reviewed with Patient Average duration of nightly device use: 3 hours 27 minutes Compliance rate %: 30 (30 days; /30 days used) Current pressure setting (cmH2O): 4-15 (mean 4.9 and 95% avg 6.7) Average residual AHI: 1.3 Central apnea: 0.3 Average large leak: n/a Subjective Missed days of use due to: reports: illness, other (HAVING TROUBLE SLEEPING DUE TO MASK. ) Patient concerns: reports: mask discomfort (oral venting waking patient up), mask leak noise, other (HEADACHE; trouble falling asleep). denies: aerophagia, air blowing in eyes, condensation in mask/hose, nasal congestion, dry mouth, nose, throat, epistaxis Observed to snore while using device: No Current pressure setting perceived as: comfortable On therapy, patient: reports: sleeping better, awakening more refreshed, being more awake and alert during the day, more rested overall. denies: drowsiness while driving Initial [place] Sleepiness Scale score: 2 (2021) Current [place] Sleepiness Scale score: 10 (01/2022) Allergies and Home Medications Known drug allergies: Yes (PNC,) Home medication list reviewed: Yes (no changes) Allergy and home medication list: Allergies Penicillins Allergy (Verified 03/31/21 08:05) Rash strawberry Allergy (Verified 03/31/21 08:05) Hives Review of Systems Review of systems same as previous: Yes (no changes) Physical Exam Vital signs obtained and entered by: HANNAH MONTGOMERY Blood Pressure: 114/87 (RIGHT, PULSE 81, RESP 18,) Heart Rate: 82 O2 Saturation: 99 (PAPER MASK) Height: 6 ft 2 in Weight: 273 lb (WITH CLOTHES) Weight change since last visit: 7 lbs loss Body Mass Index: 35.0 BMI Classification: Obese Impression and Plan 1. Obstructive Sleep Apnea-Hypopnea Syndrome, moderate, with poor treatment compliance and good apnea control. On CPAP therapy, the patient has better sleep quality and is more rested overall. The patients pressure will be changed to autoCPAP 6-8 cmH20 to reflect pressure being used. Patient advised to contact me if pressure change is uncomfortable so that it can be adjusted. Goals for apnea control discussed. He has been having issues with oral venting that is waking him up and also forgetting to put the mask on after getting up to the bathroom. I gave him a Respironic Hybrid full face mask to try to reduce wake ups due to mouth coming open and air escaping. I also advised that he leave mask on and just unhook the tubing so he will not forget to put mask back on. He voiced understanding and agreement to plan. Patient's apnea severity and rationale for treatment to reduce apnea, improve sleep quality and reduce cardiovascular and cerebrovascular events was reviewed. I also reviewed the benefit of consistent device use of CPAP for hypertension, diabetes and cardiac disease. 2. Obesity, unspecified. Patient has lost weight (7 pounds). Currently patients BMI is 35.0. Obesity increases the risk of apnea, CPAP pressure requirements and overall health risks especially cardiovascular and diabetes. Thus patient is advised to continue to try to lose weight. Weight loss can be done with reducing portion size, reducing refined foods and balancing content with vegetables, fruit and whole grain foods. In addition, patient encouraged to get regular exercise. * Change auto CPAP pressure to 6-8 cmH2O * Notify me if snoring with mask or feeling that the pressure is too much or too little * Continue to try to lose weight * Call this office if any problems using CPAP * Return for follow up in 1-2 months, or sooner if concerns arise Mask provided: Yes Counseling Topics: Spare mask, Weight loss health impact Visit Type: In Office Time Spent with Patient (minutes): 24 Provider Statement: I spent 100% of the Face to Face Visit with the patient with greater than 50% spent counseling the patient and coordination of care.
== END 2022-01-23 12:50 | disposition home or self-care (01) ==
LOC: SC 12:49
PROVIDERS: ATTEND Nurse Practitioner Family
DX: G47.33 Obstructive sleep apnea (adult) (pediatric) (principal); E66.9 Obesity, unspecified; Z68.35 Body mass index [BMI] 35.0-35.9, adult
CPT/HCPCS: 99212; 99213

== ENCOUNTER 2022-04-03 09:57 | Outpatient (CLI) | payer MEDICAID ==
[2022-04-03 11:57] LABS: BASOPHILS # (AUTO) 0.1 10^3/uL (0.0-0.1); BASOPHILS % (AUTO) 0.8 %; EOSINOPHILS # (AUTO) 0.3 10^3/uL (0.0-0.7); EOSINOPHILS % (AUTO) 4.5 %; HCT - HEMATOCRIT 42.4 % (42.0-52.0); HGB - HEMOGLOBIN 14.2 g/dL (14.0-18.0); LYMPHOCYTES # (AUTO) 2.1 10^3/uL (1.5-3.5); LYMPHOCYTES % (AUTO) 31.3 %; MEAN CORPUSCULAR HEMOGLOBIN 32.3 pg (27.0-31.0); MEAN CORPUSCULAR HGB CONC 33.5 g/dL (32.0-36.0); MEAN CORPUSCULAR VOLUME 96.4 fL (80.0-94.0); MEAN PLATELET VOLUME 8.9 fL (7.4-11.4); MONOCYTES # (AUTO) 0.7 10^3/uL (0.0-1.0); MONOCYTES % (AUTO) 10.5 %; NEUTROPHILS # (AUTO) 3.5 10^3/uL (1.5-6.6); NEUTROPHILS % (AUTO) 52.6 %; PLT - PLATELET COUNT 326 10^3/uL (130-450); WHITE BLOOD COUNT 6.6 x10^3/uL (4.8-10.8)
[2022-04-03 12:38] LABS: CREATININE,URINE 90.1 mg/dL; MICROALBUM/CREATININE RATIO,UR 2.2 ug/mg (<30.0); MICROALBUMIN,URINE 0.2 mg/dL (0-300.0)
[2022-04-03 12:39] LABS: ALBUMIN 4.6 g/dL (3.2-5.5); ALBUMIN/GLOBULIN RATIO 1.6 (1.0-2.2); ALKALINE PHOSPHATASE 73 IU/L (42-121); ALT ALANINE AMINOTRANSFERASE 21 IU/L (10-60); AST ASPARTATE AMINOTRANSFERASE 13 IU/L (10-42); BILIRUBIN,TOTAL 0.7 mg/dL (0.2-1.0); BUN - BLOOD UREA NITROGEN 21 mg/dL (6-20); CALCIUM 9.8 mg/dL (8.5-10.3); CARBON DIOXIDE - CO2 29 mmol/L (21-32); CHLORIDE 103 mmol/L (101-111); CHOL/HDL RATIO 4.8 (<5.0); CHOLESTEROL 169 mg/dL; GFR - MDRD 79 (>89); GLUCOSE 197 mg/dL (70-100); HDL CHOLESTEROL 35 mg/dL; POTASSIUM 4.6 mmol/L (3.5-5.0); SODIUM 140 mmol/L (135-145); TOTAL PROTEIN 7.4 g/dL (6.7-8.2); TRIGLYCERIDES 517 mg/dL
[2022-04-03 12:41] LABS: THYROID STIMULATING HORMONE 1.39 uIU/mL (0.34-5.60)
[2022-04-03 14:12] LABS: ESTIMATED AVERAGE GLUCOSE 192 mg/dL (70-100); HEMOGLOBIN A1c% 8.3 % (4.27-6.07); LDL CHOLESTEROL,DIRECT 73 mg/dL; LDLD/HDL RATIO 2.1 (<3.6)
== END 2022-04-03 09:58 | disposition home or self-care (01) ==
LOC: LAB.N 09:57
PROVIDERS: ATTEND Family Medicine
DX: I10 Essential (primary) hypertension (principal); E11.42 Type 2 diabetes mellitus with diabetic polyneuropathy; E11.65 Type 2 diabetes mellitus with hyperglycemia; G47.33 Obstructive sleep apnea (adult) (pediatric); G47.9 Sleep disorder, unspecified; B35.1 Tinea unguium; L40.8 Other psoriasis; M54.50 Low back pain, unspecified; G89.29 Other chronic pain
CPT/HCPCS: 36415; 80053; 80061; 82043; 82570; 83036; 83721; 84153; 84443; 85025

== ENCOUNTER 2022-06-05 12:30 | Outpatient (CLI) | payer MEDICAID ==
[2022-06-05 13:33] VITALS: BP 100/60
--- NOTE | 2022-06-05 13:33 | SLEEP CARE CONSULTATION ---
Information from patient questionnaire entered by Felix Banks. I have reviewed and concur with the information entered by Felix Banks. This document represents the service I personally performed and the decisions made by me, Niya Bridges ARNP. History of Present Illness Service Date and Time: 06/05/2022 1230 Previous diagnosis: Moderate, Obstructive Sleep Apnea-Hypopnea Syndrome AHI: 16.8 Reason for follow up: other (2 MONTH F/U ) Equipment type: CPAP ([facility]) Equipment obtained from: [facility] (They came and took machine back due to non- compliance) Mask style: Nasal pillows Backup mask available: Yes Prior sleep studies: No Type of Sleep Study: Home sleep study HPI additional information: KAT SIM was diagnosed to have moderate, AHI 16.8, obstructive sleep apnea- hypopnea syndrome and returned today for CPAP therapy two month follow-up. Sleep Study - Results Type of Sleep Study: Home sleep study Prior sleep studies: No CPAP Compliance Data - Data Reviewed with Patient Average duration of nightly device use: 2 hours 52 minutes Compliance rate %: 7.4 ( days used; 03/29/22-06/04/22) Current pressure setting (cmH2O): 4-15 Average residual AHI: 0.6 Central apnea: 0.1 Average large leak: 0 Compliance data discussion: Jenni CPAP was picked up by [employer] due to non-compliance use by patient. Subjective Missed days of use due to: reports: mask issues (anxiety causing mask discomfort, not able to keep it on) Initial [place] Sleepiness Scale score: 2 (2021) Current [place] Sleepiness Scale score: 0 (06/05/22) Allergies and Home Medications Home medication list reviewed: Yes (Alprazolam, pt stopped on own, does not like how it makes him feel) Allergy and home medication list: Allergies Penicillins Allergy (Verified 03/31/21 08:05) Rash strawberry Allergy (Verified 03/31/21 08:05) Hives Review of Systems Review of systems same as previous: Yes (no changes) Physical Exam Vital signs obtained and entered by: BOLIVAR LOVE Blood Pressure: 100/60 (left arm ) Cuff size: long Heart Rate: 89 O2 Saturation: 96 Height: 6 ft 2 in Weight: 274 lb Body Mass Index: 35.2 BMI Classification: Obese Impression and Plan 1. Obstructive Sleep Apnea-Hypopnea Syndrome, moderate, with poor treatment compliance and good apnea control. Patient has been unable to get compliant on his CPAP because he has anxiety when using the mask on his face. He tried some new medication for his anxiety but did not like the way it made him feel and he stopped using it. His [employer] company came and picked up his CPAP. He no longer has a CPAP. He would like to try a different solution for his MAXI. He is a good candidate for oral appliance therapy. He voiced that he would like to try the oral appliance. I reviewed that his insurance will have to approve payment and some may not. He voiced understanding. If he is able to get an oral appliance then he will call to make a follow up appointment to see how he is doing with it and order a sleep study to verified efficacy of treatment. He voiced agreement. Patient's apnea severity and rationale for treatment to reduce apnea, improve sleep quality and reduce cardiovascular and cerebrovascular events was reviewed. I also reviewed the benefit of consistent device use of CPAP for hypertension, cardiac disease and diabetes. * Stop CPAP * Oral appliance therapy * Attempt to lose weight * Call this office if any problems * Return for follow up in 3 months or one month after obtaining oral device, or sooner if concerns arise Counseling Topics: Sleeping position, Weight loss health impact Visit Type: In Office Time Spent with Patient (minutes): 25 Provider Statement: I spent 100% of the Face to Face Visit with the patient with greater than 50% spent counseling the patient and coordination of care.
== END 2022-06-05 12:31 | disposition home or self-care (01) ==
LOC: SC 12:30
PROVIDERS: ATTEND Nurse Practitioner Family
DX: G47.33 Obstructive sleep apnea (adult) (pediatric) (principal); E66.9 Obesity, unspecified; Z68.35 Body mass index [BMI] 35.0-35.9, adult
CPT/HCPCS: 99212; 99213

== ENCOUNTER 2022-06-26 10:44 | Outpatient (CLI) | payer MEDICAID ==
[2022-06-26 12:22] LABS: CALCIUM 9.4 mg/dL (8.5-10.3); CREATININE 0.9 mg/dL (0.6-1.2); POTASSIUM 4.6 mmol/L (3.5-5.0)
[2022-06-26 12:47] LABS: ESTIMATED AVERAGE GLUCOSE 163 mg/dL (70-100); HEMOGLOBIN A1c% 7.3 % (4.27-6.07)
== END 2022-06-26 10:45 | disposition home or self-care (01) ==
LOC: LAB.N 10:44
PROVIDERS: ATTEND Family Medicine
DX: E11.42 Type 2 diabetes mellitus with diabetic polyneuropathy (principal); F17.200 Nicotine dependence, unspecified, uncomplicated
CPT/HCPCS: 36415; 80048; 83036

== ENCOUNTER 2022-09-25 10:50 | Outpatient (CLI) | payer MEDICAID ==
[2022-09-25 18:08] LABS: CALCIUM 9.2 mg/dL (8.5-10.3); POTASSIUM 4.4 mmol/L (3.5-5.0)
[2022-09-25 21:20] LABS: ESTIMATED AVERAGE GLUCOSE 163 mg/dL (70-100); HEMOGLOBIN A1c% 7.3 % (4.27-6.07)
== END 2022-09-25 10:51 | disposition home or self-care (01) ==
LOC: LAB.N 10:50
PROVIDERS: ATTEND Family Medicine
DX: E11.42 Type 2 diabetes mellitus with diabetic polyneuropathy (principal)
CPT/HCPCS: 36415; 80048; 83036

== ENCOUNTER 2022-12-25 08:43 | Outpatient (CLI) | payer MEDICAID ==
[2022-12-25 11:56] LABS: CALCIUM 9.1 mg/dL (8.5-10.3); CREATININE 1.1 mg/dL (0.6-1.2)
[2022-12-25 12:08] LABS: CREATININE,URINE 104.3 mg/dL; MICROALBUM/CREATININE RATIO,UR 3.8 ug/mg (<30.0); MICROALBUMIN,URINE 0.4 mg/dL (0-300.0)
[2022-12-25 12:12] LABS: ESTIMATED AVERAGE GLUCOSE 166 mg/dL (70-100); HEMOGLOBIN A1c% 7.4 % (4.27-6.07)
== END 2022-12-25 08:44 | disposition home or self-care (01) ==
LOC: LAB.N 08:43
PROVIDERS: ATTEND Family Medicine
DX: I10 Essential (primary) hypertension (principal); E11.42 Type 2 diabetes mellitus with diabetic polyneuropathy
CPT/HCPCS: 36415; 80048; 82043; 82570; 83036

== ENCOUNTER 2023-01-02 09:11 | Outpatient (CLI) | payer MEDICAID ==
--- NOTE | 2023-01-02 13:10 | XRAY Report ---
PROCEDURE: Hip w/Pelvis 2-3V RT INDICATIONS: TROCHANTERIC BURSITIS,RIGHT TECHNIQUE: AP pelvis with lateral view(s) of the right hip(s). COMPARISON: None. FINDINGS: Bones: No fractures or dislocations. No suspicious bony lesions. Soft tissues: No suspicious soft tissue calcifications or masses. IMPRESSION: Unremarkable right hip radiographs Reviewed by: Govind Snyder MD on 01/02/2023 12:09 PM AKDT Approved by: Govind Snyder MD on 01/02/2023 12:09 PM AKDT Station ID: [id number]
== END 2023-01-02 09:12 | disposition home or self-care (01) ==
LOC: DI 09:11
PROVIDERS: ATTEND Family Medicine
DX: M70.61 Trochanteric bursitis, right hip (principal)

== ENCOUNTER 2023-03-12 16:45 | Outpatient (CLI) | payer BC, MEDICAID | END 2023-03-12 17:00 | disposition home or self-care (01) | LOC: LAB.N 16:45 | PROVIDERS: ATTEND Family Medicine | DX: L03.039 Cellulitis of unspecified toe (principal) | CPT/HCPCS: 87070; 87205 ==

== ENCOUNTER 2023-03-27 09:49 | Outpatient (CLI) | payer BC ==
[2023-03-27 12:10] LABS: BASOPHILS # (AUTO) 0.1 10^3/uL (0.0-0.1); BASOPHILS % (AUTO) 1.1 %; EOSINOPHILS # (AUTO) 0.4 10^3/uL (0.0-0.7); HCT - HEMATOCRIT 46.2 % (42.0-52.0); HGB - HEMOGLOBIN 15.4 g/dL (14.0-18.0); LYMPHOCYTES # (AUTO) 1.8 10^3/uL (1.5-3.5); LYMPHOCYTES % (AUTO) 25.7 %; MEAN CORPUSCULAR HEMOGLOBIN 31.4 pg (27.0-31.0); MEAN CORPUSCULAR HGB CONC 33.3 g/dL (32.0-36.0); MEAN CORPUSCULAR VOLUME 94.3 fL (80.0-94.0); MEAN PLATELET VOLUME 8.8 fL (7.4-11.4); MONOCYTES # (AUTO) 0.8 10^3/uL (0.0-1.0); MONOCYTES % (AUTO) 11.8 %; NEUTROPHILS # (AUTO) 3.9 10^3/uL (1.5-6.6); NEUTROPHILS % (AUTO) 56.1 %; PLT - PLATELET COUNT 313 10^3/uL (130-450); RED CELL DISTRIBUTION WIDTH 12.1 % (12.0-15.0)
[2023-03-27 12:31] LABS: ALBUMIN 4.6 g/dL (3.2-5.5); ALBUMIN/GLOBULIN RATIO 1.4 (1.0-2.2); BILIRUBIN,TOTAL 0.6 mg/dL (0.2-1.0); CALCIUM 9.3 mg/dL (8.5-10.3); CREATININE 1.2 mg/dL (0.6-1.2); POTASSIUM 4.5 mmol/L (3.5-5.0)
[2023-03-27 12:47] LABS: THYROID STIMULATING HORMONE 2.56 uIU/mL (0.34-5.60)
[2023-03-27 13:09] LABS: ESTIMATED AVERAGE GLUCOSE 192 mg/dL (70-100); HEMOGLOBIN A1c% 8.3 % (4.27-6.07)
[2023-03-27 13:33] LABS: CREATININE,URINE 70.1 mg/dL; MICROALBUM/CREATININE RATIO,UR 5.7 ug/mg (<30.0); MICROALBUMIN,URINE 0.4 mg/dL (0-300.0)
[2023-03-27 20:51] LABS: CHOL/HDL RATIO 5.4 (<5.0); CHOLESTEROL 196 mg/dL; HDL CHOLESTEROL 36 mg/dL; TRIGLYCERIDES 571 mg/dL
[2023-03-27 21:19] LABS: LDL CHOLESTEROL,DIRECT 87 mg/dL; LDLD/HDL RATIO 2.4 (<3.6)
== END 2023-03-27 09:50 | disposition home or self-care (01) ==
LOC: LAB.N 09:49
PROVIDERS: ATTEND Family Medicine
DX: E11.42 Type 2 diabetes mellitus with diabetic polyneuropathy (principal); G47.33 Obstructive sleep apnea (adult) (pediatric); F17.200 Nicotine dependence, unspecified, uncomplicated; E66.9 Obesity, unspecified; I10 Essential (primary) hypertension
CPT/HCPCS: 36415; 80053; 80061; 82043; 82570; 83036; 83721; 84443; 85025

== ENCOUNTER 2023-04-18 13:49 | Outpatient (CLI) | payer BC ==
--- NOTE | 2023-04-18 16:42 | XRAY Report ---
PROCEDURE: Lumbar Spine Complete INDICATIONS: BACK PAIN TECHNIQUE: 4 views of the lumbar spine were acquired. COMPARISON: None. FINDINGS: Bones: 5 [id number] vertebrae are present. There is 5 mm retrolisthesis of L2 on L3 and 4 mm re trolisthesis of L3 on L4. Degenerative endplate changes and bilateral facet arthrosis are noted throu ghout lumbar spine more notably at L4-5 and L5-S1 levels. No vertebral body compression fractures. N o suspicious bony lesions. Oblique views shows no gross pars defects. Soft tissues: Overlying bowel gas pattern is normal. No suspicious soft tissue calcifications. IMPRESSION: 1. Grade 1 retrolisthesis at L2-3 and L3-4 levels as above. No acute compression fracture. 2. Degenerative disc disease throughout lumbar spine. 3. No gross pars defects. Reviewed by: Dario Gutierrez MD on 04/18/2023 4:41 PM PDT Approved by: Dario Gutierrez MD on 04/18/2023 4:41 PM PDT Station ID: [id number]
== END 2023-04-18 13:50 | disposition home or self-care (01) ==
LOC: DI 13:49
PROVIDERS: ATTEND Family Medicine
DX: M70.61 Trochanteric bursitis, right hip (principal); M43.16 Spondylolisthesis, lumbar region; M51.16 Intervertebral disc disorders with radiculopathy, lumbar region

== ENCOUNTER 2023-10-29 11:44 | Outpatient (CLI) | payer BC ==
[2023-10-29 18:14] LABS: CALCIUM 9.4 mg/dL (8.5-10.3); CREATININE 1.1 mg/dL (0.6-1.3); POTASSIUM 4.5 mmol/L (3.5-4.5)
[2023-10-29 20:07] LABS: ESTIMATED AVERAGE GLUCOSE 189 mg/dL (70-100); HEMOGLOBIN A1c% 8.2 % (4.27-6.07)
== END 2023-10-29 11:45 | disposition home or self-care (01) ==
LOC: LAB.N 11:44
PROVIDERS: ATTEND Family Medicine
DX: E11.42 Type 2 diabetes mellitus with diabetic polyneuropathy (principal); E11.65 Type 2 diabetes mellitus with hyperglycemia
CPT/HCPCS: 36415; 80048; 83036

== ENCOUNTER 2024-05-28 11:54 | Emergency (ER) | payer BC ==
[2024-05-28 12:12] LABS: BILIRUBIN,URINE MODERATE (NEGATIVE); CLARITY,URINE c (CLEAR); GLUCOSE, URINE (UA) >=1000 mg/dL (NEGATIVE); KETONES,URINE (UA) TRACE mg/dL (NEGATIVE); LEUKOCYTE ESTERASE, URINE NEGATIVE (NEGATIVE); NITRITE,URINE NEGATIVE (NEGATIVE); OCCULT BLOOD,URINE NEGATIVE (NEGATIVE); PH,URINE 5.5 PH (5.0-7.5); PROTEIN,URINE NEGATIVE (NEGATIVE); UROBILINOGEN,URINE 0.2 (NORMAL) E.U./dL (NORMAL)
[2024-05-28 12:20] LABS: BASOPHILS # (AUTO) 0.1 10^3/uL (0.0-0.1); BASOPHILS % (AUTO) 0.7 %; EOSINOPHILS # (AUTO) 0.3 10^3/uL (0.0-0.7); EOSINOPHILS % (AUTO) 3.4 %; HCT - HEMATOCRIT 42.2 % (42.0-52.0); HGB - HEMOGLOBIN 13.3 g/dL (14.0-18.0); LYMPHOCYTES # (AUTO) 1.3 10^3/uL (1.5-3.5); LYMPHOCYTES % (AUTO) 16.3 %; MEAN CORPUSCULAR HEMOGLOBIN 30.6 pg (27.0-31.0); MEAN CORPUSCULAR HGB CONC 31.5 g/dL (32.0-36.0); MEAN CORPUSCULAR VOLUME 97.2 fL (80.0-94.0); MEAN PLATELET VOLUME 8.8 fL (7.4-11.4); MONOCYTES # (AUTO) 0.7 10^3/uL (0.0-1.0); MONOCYTES % (AUTO) 8.8 %; NEUTROPHILS # (AUTO) 5.8 10^3/uL (1.5-6.6); NEUTROPHILS % (AUTO) 70.6 %; PLT - PLATELET COUNT 332 10^3/uL (130-450); RED BLOOD COUNT 4.34 10^6/uL (4.70-6.10); RED CELL DISTRIBUTION WIDTH 13.2 % (12.0-15.0); WHITE BLOOD COUNT 8.2 x10^3/uL (4.8-10.8)
[2024-05-28 13:02] LABS: ALBUMIN 4.4 g/dL (3.2-5.5); ALBUMIN/GLOBULIN RATIO 1.4 (1.0-2.2); BILIRUBIN,TOTAL 3.4 mg/dL (0.2-1.0); CALCIUM 9.7 mg/dL (8.5-10.3); CREATININE 1.1 mg/dL (0.6-1.3); POTASSIUM 4.6 mmol/L (3.5-4.5); TOTAL PROTEIN 7.6 g/dL (6.4-8.9)
--- NOTE | 2024-05-28 13:40 | ED Physician Documentation ---
History of Present Illness - Stated complaint Stated Complaint: LOWER BACK/ABD PX - Chief complaint Chief Complaint: Abd Pain - Additonal information Additional information: Patient is a 53-year-old male presenting to the emergency department with upper and lower abdominal pain that has been going on for 2 weeks now radiating to his back on both sides. He notes no nausea or vomiting associated with his symptoms. He notes symptoms do seem to worsen after he eats. He is concerned as he is having light-colored stool and dark-colored urine associated with his symptoms as well. He has no history of alcohol abuse. No history of cirrhosis. He has no history of abdominal surgeries. He denies any recent changes in his diet. He has not had any fevers or chills. He notes his pain was so severe while he was at work today he decided to come to the ER. He last ate around 9 AM today after eating some [place] toast. He has a history remarkable for type 2 diabetes on insulin and metformin and history of coronary artery disease. Notes no chest pain no shortness of breath associate with his symptoms. PD PAST MEDICAL HISTORY - Past Medical History Past Medical History: Yes Cardiovascular: Hypertension, High cholesterol, Coronary artery disease Respiratory: None Neuro: None Endocrine/Autoimmune: Type 2 diabetes GI: GERD : None HEENT: None Psych: Anxiety Musculoskeletal: None Derm: None - Past Surgical History Past Surgical History: No - Present Medications Home Medications: Ambulatory Orders Medication Instructions Recorded Confirmed Aspirin [Aspirin EC] 81 mg PO DAILY 10/21/20 05/29/22 Atorvastatin Calcium 80 mg PO DAILY 10/21/20 05/29/22 Cyclobenzaprine HCl 30 mg PO HS 10/21/20 05/29/22 Insulin Glargine [Lantus Solostar] 46 units SQ HS 10/21/20 05/29/22 Lisinopril [Zestril] 40 mg PO DAILY 10/21/20 05/29/22 carvediloL [Coreg] 25 mg PO BID 10/21/20 05/29/22 glipiZIDE [Glipizide] 10 mg PO BID 10/21/20 05/29/22 metFORMIN [Glucophage] 1,000 mg PO BID 10/21/20 05/29/22 hydroCHLOROthiazide [Hydrodiuril] 12.5 mg PO DAILY 03/31/21 05/29/22 Acetaminophen [Tylenol Arthritis] 1,000 mg PO DAILY 05/29/22 05/29/22 Alprazolam [Xanax] 0.25 mg PO HS 05/29/22 05/29/22 Ascorbic Acid [Vitamin C] 1,000 mg PO DAILY 05/29/22 05/29/22 Cholecalciferol [Vitamin D3] 50 mcg PO DAILY 05/29/22 05/29/22 Empagliflozin [Jardiance] 10 mg PO DAILY 05/29/22 05/29/22 Gabapentin [Neurontin] 1,200 mg PO HS 05/29/22 05/29/22 Insulin Aspart [NovoLOG] 4 - 8 units SUBQ TIDWM 05/29/22 05/29/22 Nicotine 21 mg Patch [Nicoderm] 1 each TOP Q24H 05/29/22 05/29/22 HYDROcod/ACETAM 5/325 [[place] 5/325] 1 - 2 tab PO Q6H PRN #15 tablet 05/28/24 Ondansetron Odt [Zofran] 4 mg TL Q6H PRN #10 tablet 05/28/24 - Allergies Allergies/Adverse Reactions: Allergies Allergy/AdvReac Type Severity Reaction Status Date / Time Penicillins Allergy Rash Verified 05/28/24 11:56 strawberry Allergy Hives Verified 05/28/24 11:56 - Social History Does the pt smoke?: Yes Smoking Status: Current every day smoker Does the pt drink ETOH?: No Does the pt have substance abuse?: No - Immunizations Immunizations are current?: Yes - POLST Patient has POLST: No PD ED PE NORMAL - Vitals Vital signs reviewed: Yes - General General: Alert and oriented X 3 - HEENT HEENT: Atraumatic - Neck Neck: Supple, no meningeal sign - Cardiac Cardiac: RRR, No murmur, No gallop, No rub - Respiratory Respiratory: No respiratory distress, Clear bilaterally - Abdomen Abdomen: Normal bowel sounds, Other (Generalized abdominal tenderness with generalized guarding on palpation. I have good bowel sounds on auscultation. Positive Romero sign on examination. No CVA tenderness on exam abdomen is sligh tly distended on examination with no signs of fluid wave.) - Male Male : Deferred - Rectal Rectal: Deferred - Back Back: No CVA TTP - Derm Derm: Normal color, Warm and dry, No rash - Extremities Extremities: No deformity - Neuro Neuro: Alert and oriented X 3 Eye Opening: Spontaneous Motor: Obeys Commands Verbal: Oriented GCS Score: 15 Results - Vitals Vitals: Vital Signs - 24 hr 05/28/24 05/28/24 05/28/24 11:57 13:59 16:00 Temperature 36.5 C Heart Rate 90 81 80 Respiratory 16 20 Rate Blood Pressure 110/60 94/60 115/68 O2 Saturation 100 96 99 05/28/24 18:00 Temperature Heart Rate 81 Respiratory Rate Blood Pressure 105/72 O2 Saturation 95 Oxygen O2 Source Room air - Labs Labs: Laboratory Tests 05/28/24 05/28/24 05/28/24 12:05 12:13 12:13 WBC 8.2 RBC 4.34 L Hgb 13.3 L Hct 42.2 MCV 97.2 H MCH 30.6 MCHC 31.5 L RDW 13.2 Plt Count 332 MPV 8.8 Neut # (Auto) 5.8 Lymph # (Auto) 1.3 L [place] # (Auto) 0.7 Eos # (Auto) 0.3 Baso # (Auto) 0.1 Absolute Nucleated RBC 0.00 Nucleated RBC % 0.0 Sodium 132 L Potassium 4.6 H Chloride 96 L Carbon Dioxide 26 Anion Gap 10.0 BUN 23 H Creatinine 1.1 Estimated GFR (MDRD) 70 L Glucose 347 H Calcium 9.7 Total Bilirubin 3.4 H AST 315 H ALT 702 H Alkaline Phosphatase 1633 H Total Protein 7.6 Albumin 4.4 Globulin 3.2 Albumin/Globulin Ratio 1.4 Lipase 128 H Urine Color DARK YELLOW Urine Clarity c Urine pH 5.5 Ur Specific [place] 1.015 Urine Protein NEGATIVE Urine Glucose (UA) >=1000 H Urine Ketones TRACE Urine Occult Blood NEGATIVE Urine Nitrite NEGATIVE Urine Bilirubin MODERATE H Urine Urobilinogen 0.2 (NORMAL) Ur Leukocyte Esterase NEGATIVE Ur Microscopic Review NOT INDICATED Urine Culture Comments NOT INDICATED - Rads (name of study) CT abdomen pelvis Relevant Findings:: EMP independent interpretation of test PD Medical Decision Making - ED course Complexity details: reviewed old records, reviewed results ED course: Patient is a 53-year-old male presenting to the emergency department with generalized anterior abdominal pain radiating to his back symptoms have been going on for 2 weeks. No nausea or vomiting associate with his symptoms. Symptoms do seem to worsen after eating. He has no history of abdominal surgeries. Vital stable on arrival he is afebrile nontachycardic. Physical exam shows generalized abdominal tenderness with guarding on exam and positive Romero sign. No CVA tenderness on exam. Labs remarkable here in emergency department for elevated transaminitis compared to labs 1 year ago with worsening ALP and bilirubin levels at 3.4. These are significantly elevated from patient's baseline. Additionally patient lipase is elevated at 121. Given generalized abdominal tenderness and no specific right upper quadrant pain will obtain CT scan at this time for further evaluation. However I suspect cholecystitis versus cholangitis versus choledocholithiasis given generalized abdominal pain and significant elevation in LFTs. Will consider ultrasound depending on results of CT abdomen. 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 No signs of gallbladder thickening or swelling. 1708: Paged GI twice at [facility] and left voicemail but unable to get in contact we will try GI at nearby hospitals. 1900: I was able to discuss with Dr. Chester at [facility] in [place] who specializes in pancreatic and GI cancers and discussed with him that patient does not qualify for inpatient treatment at this time he reviewed images and labs and recommends patient being seen in the outpatient setting. He notes he can call [facility] to set up an appointment in outpatient setting. Recommends giving pain medication and nausea medications in the meantime. I discussed with patient he is agreeable with this plan. We discussed at length that given he is a stable he can go home but stressed the importance of follow- up in the outpatient setting. He understands and is agreeable with this plan. Patient was given the follow-up number for palliative care as well as well as his PCP to ensure that he has good follow-up.Patient understands agreeable with plan he was recommended to return with any new or worsening symptoms but also suggested that since we do not have GI he can go to other ERs nearby if he develops any worsening symptoms. Patient understands this and is agreeable with this plan he is eating and drinking and feels better here in the emergency department after pain meds and nausea meds were given. Patient feels safe to go home but will return with any new or worsening symptoms. Departure - Departure Disposition: 01 Home, Self Care Clinical Impression: Pancreatic mass, Adenocarcinoma, Transaminitis, Elevated bilirubin, Common bile duct dilation Condition: Fair Follow-Up: Fili Piña MD [Primary Care Provider] - Enriqueta Armendariz ARNP [Provider Admit Priv/Credential] - Comments: You were seen here in the emergency department for your abdominal pain your workup here did show concerning findings for adenocarcinoma of the pancreas this is a new finding for you it is most likely what is causing your pain. I have discussed this case with GI provider at which is [facility] and he recommends he follow-up outpatient as we have no concerns for infection at this time. I have given you pain medications and nausea medications to help with your symptoms if you develop any worsening symptoms or your symptoms are not controlled with these medications I urged you to go to the emergency department. You can go to an ER nearby that has GI including [facility] [place]. You can return here as well but we do not have GI here. Please call : [phone] this is a [facility] [place] they of specialties and specifically pancreatic cancer. You can also request an appointment online here is the appointment website: [email or web address] I have given you referral to palliative care as well that you can follow-up with as well as follow-up with your PCP so that they are aware of what is going on. These can be both done at [facility]. Forms: PCP List
[2024-05-28] MEDS ORDERED: iohexoL-300 100 ML VIAL ONE (14:08)
--- NOTE | 2024-05-28 15:07 | CT Report ---
PROCEDURE: Abdomen/Pelvis W INDICATIONS: lower abdominal pain, back pain CONTRAST: omni, 100 TECHNIQUE: After the administration of intravenous contrast, a CT scan of the abdomen and pelvis was performed. Images were recorded and evaluated at appropriate window settings. Reformats: coronal and sagittal. F or radiation dose reduction, the following was used: automated exposure control, adjustment of mA and /or kV according to patient size. COMPARISON: None. FINDINGS: Image quality: Diagnostic. Lower chest: Severe coronary artery calcifications. Normal heart size. Extreme lung bases are clear.. Liver: No solid mass. Gallbladder: Distended gallbladder. No gallbladder wall thickening. Biliary tree: Presumed obstruction the biliary tree with mild diffuse biliary ductal dilatation. Spleen: No splenomegaly. Pancreas: Subtle infiltrative hypodense uncinate process mass measuring approximately 4.5 x 3.1 cm. S uspect infiltrative pancreatic adenocarcinoma. Reference axial image 57 of series 2. There is associa erika dilatation of the pancreatic duct. There is question of infiltrative involvement of the duodenum. There are small aortocaval lymph nodes which are of uncertain etiology. Reference axial image 42. Adrenals: No adrenal nodule. Kidneys and ureters: No hydronephrosis. No renal cystic lesion which requires follow up. No solid mas s. Stomach, bowel and peritoneum: No gastric or small bowel dilation. No abnormal wall thickening. No pa thologic free fluid. Lymph nodes: No central or retroperitoneal adenopathy. Vessels: No infrarenal aortic aneurysm. Patent portal vein. PELVIS Reproductive organs: Unremarkable. Bladder: No abnormal wall thickening, accounting for underdistention. Pelvic lymph nodes: No pelvic adenopathy by size criteria. Bones: No aggressive osseous abnormality. Other: No significant ventral or inguinal hernia. IMPRESSION: 1. 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 There are associated lymph nodes which are of uncertain etiology. There is no liver metastatic disease. There is biliary ductal dilatation. Recommends nonemergent pancreas protocol MRI for further evaluation. Reviewed by: Kwaku Quiñonez MD on 05/28/2024 3:05 PM PDT Approved by: Kwaku Quiñonez MD on 05/28/2024 3:05 PM PDT Station ID: [id number]
[2024-05-28] MEDS: ONDANSETRON 4 MG/2 ML VIAL IVP STA (15:34)
[2024-05-28] MEDS: MORPHINE 2 MG/ML CARPUJECT IVP STA (15:34)
[2024-05-28] MEDS: iohexoL-300 100 ML VIAL IVP ONE (17:52)
[2024-05-28 19:21] VITALS: BP 105/69; O2SAT 100
== END 2024-05-28 19:35 | disposition home or self-care (01) ==
LOC: ED 11:54
DX: K86.9 Disease of pancreas, unspecified (principal); C80.1 Malignant (primary) neoplasm, unspecified; R74.01 Elevation of levels of liver transaminase levels; E80.6 Other disorders of bilirubin metabolism; I10 Essential (primary) hypertension; E78.00 Pure hypercholesterolemia, unspecified; I25.10 Atherosclerotic heart disease of native coronary artery without angina pectoris; E11.9 Type 2 diabetes mellitus without complications; Z79.82 Long term (current) use of aspirin; Z79.84 Long term (current) use of oral hypoglycemic drugs; Z79.899 Other long term (current) drug therapy; Z79.4 Long term (current) use of insulin; F17.200 Nicotine dependence, unspecified, uncomplicated
CPT/HCPCS: 36415; 74177; 80053; 81003; 83690; 85025; 96374; 99284; Q9967; 81001; 87086